=== PATIENT | female | born 1990 | race Caucasian/White ===

== ENCOUNTER 2017-08-01 06:47 | Inpatient (IN) | payer BC ==
[~2017-08-01] VITALS: Ht 175.3 cm; Wt 74.5 kg
[2017-08-01] VITALS (13 sets, daily range): BP systolic 96–114; BP diastolic 50–63; PULSE 49–89; TEMP 97.9–98.9
[2017-08-01 08:36] LABS: BASO # 0.1 (0.0-0.2); BASO % 0.6 % (0.0-2.0); EOS # 0.1 (0.0-0.7); EOS % 0.9 % (0-4.0); GRAN # 5.5 (1.4-6.5); GRAN % 61.3 % (42.2-75.2); HEMATOCRIT 38.2 % (37.0-47.0); HEMOGLOBIN 13.4 g/dl (12.5-16.0); LYMPH # 2.6 (1.2-3.4); LYMPH % 28.8 % (20.0-51.0); MEAN CELL VOLUME 89 fl (80.0-100.0); MEAN CORPUSCULAR HEMOGLOBIN 31 pg (27.0-31.0); MEAN CORPUSCULAR HGB CONC 35 g/dl (33.0-37.0); MEAN PLATELET VOLUME 11.9 fl (7.4-10.4); MONO # 0.7 (0.1-0.6); MONO % 7.6 % (1.7-9.3); PLATELET COUNT 188 K/mm3 (130-400); REDCELL DISTRIBUTION WIDTH-CV 12.8 % (11.5-14.5)
[2017-08-02 00:40] VITALS: BP 97/61; PULSE 61; TEMP 98.2
[2017-08-02 03:50] VITALS: BP 107/52; PULSE 59; TEMP 98.1
[2017-08-02 07:15] VITALS: BP 110/62; PULSE 60; TEMP 99.1
[2017-08-02 16:34] VITALS: BP 100/56; PULSE 52; TEMP 97.9
[2017-08-02 20:00] VITALS: BP 104/66; PULSE 58; TEMP 98.3
[2017-08-03] MEDS ORDERED: PERCOCET 325 MG1 TA2 PO (07:50)
[2017-08-03] MEDS ORDERED: MOTRIN 800800 MG/TAB PO (07:50)
[2017-08-03 08:00] VITALS: BP 105/54; PULSE 80; TEMP 97.8
== END 2017-08-03 12:20 | disposition home or self-care (01) | DRG 775 ==
LOC: LDRO 06:47 → LDR 07:20 → OB 11:00
PROVIDERS: Student in an Organized Health Care Education/Training Program
PROC: 10E0XZZ Delivery of Products of Conception, External Approach (ICD-10-PCS; principal; 2017-08-01)
PROC: 0HQ9XZZ Repair Perineum Skin, External Approach (ICD-10-PCS; 2017-08-01)
PROC: 0UQKXZZ Repair Hymen, External Approach (ICD-10-PCS; 2017-08-01)
DX: O42.013 Preterm premature rupture of membranes, onset of labor within 24 hours of rupture, third trimester (principal); Z3A.36 36 weeks gestation of pregnancy; Z37.0 Single live birth; O70.0 First degree perineal laceration during delivery; O40.3XX0 Polyhydramnios, third trimester, not applicable or unspecified; E28.2 Polycystic ovarian syndrome
CPT/HCPCS: J2590; J7120

== ENCOUNTER → 2017-08-05 | Outpatient (CLI) | payer BC ==
[~2017-08-05] MED LIST: MOTRIN 800800 MG/TAB PO; PERCOCET 325 MG1 TA2 PO
== END ==
LOC: OLC 11:26
DX: Z39.1 Encounter for care and examination of lactating mother (principal); Z71.89 Other specified counseling

== ENCOUNTER → 2017-08-12 | Outpatient (CLI) | payer BC | LOC: OLC 11:01 | DX: Z39.1 Encounter for care and examination of lactating mother (principal); Z71.89 Other specified counseling ==

== ENCOUNTER → 2017-08-19 | Outpatient (CLI) | payer BC | LOC: LAC 10:08 | DX: Z39.1 Encounter for care and examination of lactating mother (principal); Z71.89 Other specified counseling ==

== ENCOUNTER → 2017-08-26 | Outpatient (CLI) | payer BC | LOC: LAC 10:32 | DX: Z39.1 Encounter for care and examination of lactating mother (principal); Z71.89 Other specified counseling ==

== ENCOUNTER 2020-07-26 09:20 | Inpatient (IN) | payer BC ==
[2020-07-26] VITALS (20 sets, daily range): BP systolic 115–142; BP diastolic 48–91; PULSE 45–96; TEMP 97.4–98
[~2020-07-26] VITALS: Ht 170.3 cm; Wt 87.7 kg
--- NOTE | 2020-07-26 09:30 | NUR ---
Patient here and changed in gown, FHR/TOCO monitors placed. Patient is 34.3 weeks gestation and di/di twins. Patient states she thinks she is having leaking of fluid. Denies any vaginal bleeding/regular contracitons/decreased movement. Plan of care discussed. 0935: SVE 5-/-2 with foot presentation-amniotest negatice and mucus noted on glove. SVE per Pranay RN- with foot presentation. Dr. Roman called and notified orders received. Jose Alfredo RN assumes care of patient and Pranay RN at bedside assisting to prep patient for .
[2020-07-26] MEDS ORDERED: PRENATAL TABLET PO (10:01)
[2020-07-26] MEDS ORDERED: ENDOMETRIN100 MG VG ×2 (10:01→10:03)
[2020-07-26 10:08] LABS: BASO # 0.1 (0.0-0.2); BASO % 0.5 % (0.0-2.0); EOS # 0.1 (0.0-0.7); EOS % 0.5 % (0-4.0); GRAN % 71.8 % (42.2-75.2); HEMATOCRIT 39.8 % (37.0-47.0); HEMOGLOBIN 13.3 g/dl (12.5-16.0); MEAN CELL VOLUME 92 fl (80.0-100.0); MEAN CORPUSCULAR HEMOGLOBIN 31 pg (27.0-31.0); MEAN CORPUSCULAR HGB CONC 33 g/dl (33.0-37.0); MEAN PLATELET VOLUME 12.3 fl (7.4-10.4); MONO # 0.6 (0.1-0.6); MONO % 6.3 % (1.7-9.3); PLATELET COUNT 146 K/mm3 (130-400); RED BLOOD COUNT 4.31 M/mm3 (4.10-5.30); REDCELL DISTRIBUTION WIDTH-CV 12.6 % (11.5-14.5)
--- NOTE | 2020-07-26 10:45 | NUR ---
Assumed care of patient. Consent forms sighned, questions offered and answered. 1045 Zofran 4 mg iv given as ordered by anesthesia. 1048 Pepcid given 20 mg iv given as ordered.
--- NOTE | 2020-07-26 12:40 | NUR ---
To pacu via bed, alert. Spouse at bedside. Denies any pain or discomfort at this time. Report received by Kassandra renae
--- NOTE | 2020-07-26 13:10 | NUR ---
Dismissed from pacu to room 221 via bed with this nurse and another r.n.
--- NOTE | 2020-07-26 18:00 | NUR ---
0620 Motrin 800 mg given as ordered.
[2020-07-27 03:50] VITALS: BP 120/73; PULSE 48; TEMP 98.1
[2020-07-27] MEDS ORDERED: IBU800 M1 PO (08:39)
[2020-07-27] MEDS ORDERED: PERCOCET 325 MG1 TA2 PO (08:40)
--- NOTE | 2020-07-27 09:30 | NUR ---
Rests in bed, alert. Denies any pain at this time.
--- NOTE | 2020-07-27 09:54 | NUR ---
Initial visit; Patient thanked for looking in on her and offering congratulations for the of her twins. thanked Raquel for choosing [facility].
[2020-07-27 10:00] VITALS: BP 126/78; PULSE 51; TEMP 97.9
--- NOTE | 2020-07-27 10:30 | NUR ---
Ambulates to the bathroom and back. Tolerates well.
--- NOTE | 2020-07-27 12:10 | NUR ---
Request pain medication. Percocet 5/325 mg two given per request and as ordered.
--- NOTE | 2020-07-27 16:00 | NUR ---
Take shower with assist of this nurse.
[2020-07-27 21:30] VITALS: BP 123/72; PULSE 56; TEMP 98.1
[2020-07-28 06:32] VITALS: BP 126/71; PULSE 57; TEMP 97.9
--- NOTE | 2020-07-28 06:47 | NUR ---
REPORT RECEIVED FROM OFF GOING RN, PERLITA Metz. CARE TAKEN OVER BY THIS RN.
--- NOTE | 2020-07-28 16:01 | NUR ---
1520 DISCHARGE INSTRUCTIONS GIVEN. PUMPED MILK PLACED ON ICE AND GIVEN TO MOTHER. SPOUSE AT BEDSIDE. NO QUESTIONS AT THIS TIME. THIS RN TOOK PATIENT TO CAR IN WHEELCHAIR.
== END 2020-07-28 15:30 | disposition home or self-care (01) | DRG 787 ==
LOC: LDRO 09:20 → LDR 09:23 → LDRO 09:49 → LDR 09:50 → OB 13:10
PROVIDERS: ADMIT Student in an Organized Health Care Education/Training Program
PROC: 10D00Z1 Extraction of Products of Conception, Low, Open Approach (ICD-10-PCS; principal; 2020-07-26)
DX: O60.14X0 Preterm labor third trimester with preterm delivery third trimester, not applicable or unspecified (principal); O26.873 Cervical shortening, third trimester; Z3A.34 34 weeks gestation of pregnancy; Z37.0 Single live birth; O30.043 Twin pregnancy, dichorionic/diamniotic, third trimester; O99.284 Endocrine, nutritional and metabolic diseases complicating childbirth; E28.2 Polycystic ovarian syndrome; Z37.2 Twins, both liveborn
CPT/HCPCS: J0290; J0690; J0702; J1885; J2405; J2590; J7120

== ENCOUNTER 2023-11-29 19:27 | Emergency (ER) | payer BC ==
[~2023-11-29] VITALS: Ht 170.2 cm; Wt 70.5 kg
[~2023-11-29 19:27] MED LIST changes: +ENDOMETRIN100 MG VG; +IBU800 M1 PO; +PRENATAL TABLET PO
[2023-11-29 19:31] VITALS: TEMP 97.6
[2023-11-29] MEDS ORDERED: fentaNYL 50 MCG/ML 2 ML VIAL IV ONE (20:00)
[2023-11-29] MEDS ORDERED: NS 1,000 ML IV ONE (20:00)
[2023-11-29] MEDS ORDERED: Etomidate 20 MG/10 ML VIAL IV ONE (20:45)
[2023-11-29] MEDS ORDERED: PERCOCET 325 MG1 TA2 PO (21:19)
[2023-11-29] MEDS ORDERED: Home oxyCODONE/Acetaminophen 5/325 MG #4 TAB/PACK PO ONE (21:30)
[2023-11-29 21:44] VITALS: BP 100/72; PULSE 52
== END 2023-11-29 21:42 | disposition home or self-care (01) ==
LOC: COL.ER 19:27
DX: S52.501A Unspecified fracture of the lower end of right radius, initial encounter for closed fracture (principal); W18.30XA Fall on same level, unspecified, initial encounter; Y93.39 Activity, other involving climbing, rappelling and jumping off
CPT/HCPCS: J3010; J7030